=== PATIENT | female | born 1955 | race Caucasian/White ===

== ENCOUNTER → 2017-02-25 | Outpatient (CLI) | payer BC ==
[~2017-02-25] MED LIST: ATEN50TA8 PO; ATOR10TA88 PO; CHOL20007 PO; LISI-725 PO; MISCCAP80 PO; MOME50SP5; PRLSR20 PO; PSYL55.43 PO; TRIATAB3 PO
== END | disposition home or self-care (01) ==
LOC: C.PAPS 11:05
PROVIDERS: ATTEND Obstetrics & Gynecology
DX: Z01.419 Encounter for gynecological examination (general) (routine) without abnormal findings (principal)

== ENCOUNTER → 2017-05-26 | Outpatient (CLI) | payer BC ==
[~2017-05-26] MED LIST changes: +ATOR10TA82 PO; -ATOR10TA88 PO
--- NOTE | 2017-05-27 14:10 | MAMMOGRAPHY REPORT ---
BILATERAL DIGITAL SCREENING MAMMOGRAM TOMOSYNTHESIS WITH CAD: 05/26/2017 CLINICAL HISTORY: Routine screening. TECHNIQUE: Breast tomosynthesis in addition to standard 2D mammography was performed. Current study was also evaluated with a Computer Aided Detection (CAD) system. COMPARISON: Comparison is made to exams dated: 05/23/2016 mammogram, 05/22/2015 mammogram, 4 mammogram, 05/26/2013 mammogram, 05/17/2013 mammogram, and 05/05/2012 mammogram - [facility]. BREAST COMPOSITION: The tissue of both breasts is heterogeneously dense, which may obscure small mas ses. FINDINGS: There is a stable manda-shaped biopsy marker clip in the 12:00 posterior left breast. A 5 mm grouping of microcalcifications in the upper outer posterior left breast appears similar on all [facility] prior mammograms dating back to at least 04/24/2008, therefore likely benign. No new suspiciou s mass, architectural distortion or cluster of microcalcifications is seen. IMPRESSION: ACR BI-RADS CATEGORY 1: NEGATIVE There is no mammographic evidence of malignancy. A 1 year screening mammogram is recommended. The pa tient will receive written notification of the results. Approximately 10% of breast cancers are not detected with mammography. A negative mammographic report should not delay biopsy if a clinically suggestive mass is present. Kaylah Reynoso M.D. ay/:05/26/2017 14:37:52 Pool Installer: Monica SUTTON)([place]), [facility] letter sent: Normal 1/2 BI-RADS Code: ACR BI-RADS Category 1: Negative
== END | disposition home or self-care (01) ==
LOC: C.MAMM 09:55
PROVIDERS: ATTEND Obstetrics & Gynecology
DX: Z12.31 Encounter for screening mammogram for malignant neoplasm of breast (principal)

== ENCOUNTER → 2017-09-09 | Outpatient (CLI) | payer OTHER ==
--- NOTE | 2017-09-08 14:21 | DIAGNOSTIC IMAGING REPORT ---
PELVIS 1 OR 2 VIEWS CLINICAL HISTORY: 61 years-old Female presenting with BILATERAL HIP PAIN. TECHNIQUE: Single frontal view the pelvis was obtained. COMPARISON: None. FINDINGS: Osteopenia may be present. Sacroiliac joints, pubic symphysis, and hip joints congruent. Bony pelvis intact. Femoral necks intact. Arcuate lines of the sacrum grossly intact. Lower lumbar spine normal. No advanced degenerative change. IMPRESSION: No acute osseous injury or advanced degenerative change. Electronically signed by: Nayan Garay M.D. 09/08/2017 2:20 PM Dictated Date/Time: 09/08/2017 2:19 PM
--- NOTE | 2017-09-08 14:22 | DIAGNOSTIC IMAGING REPORT ---
LUMBAR SPINE MIN 4 VIEWS CLINICAL HISTORY: Low back pain COMPARISON STUDY: No previous studies for comparison. FINDINGS: There is no pathologic bowel dilatation. There is marked disc space narrowing at the L5-S1 level. No acute fractures are visualized. There is an area of sclerosis involving the iliac side of the inferior margin of the left SI joint. IMPRESSION: 1. No acute fractures 2. Marked disc space narrowing at the L5-S1 level. Electronically signed by: Monroe Gregg M.D. 09/08/2017 2:21 PM Dictated Date/Time: 09/08/2017 2:19 PM
== END | disposition home or self-care (01) ==
LOC: C.RDSM 14:00
PROVIDERS: ATTEND Internal Medicine
DX: M25.551 Pain in right hip (principal); M25.552 Pain in left hip

== ENCOUNTER → 2017-09-15 | Outpatient (CLI) | payer OTHER | END | disposition home or self-care (01) | LOC: C.MAMM 07:54 | PROVIDERS: ATTEND Family Medicine | DX: M85.89 Other specified disorders of bone density and structure, multiple sites (principal); M81.0 Age-related osteoporosis without current pathological fracture ==